=== PATIENT | male | born 1950 | race Caucasian/White ===

== ENCOUNTER → 2019-03-14 | Outpatient (CLI) | payer OTHER | END | disposition home or self-care (01) | LOC: MRI 07:28 | DX: M47.26 Other spondylosis with radiculopathy, lumbar region (principal); M47.27 Other spondylosis with radiculopathy, lumbosacral region; M47.12 Other spondylosis with myelopathy, cervical region; M51.17 Intervertebral disc disorders with radiculopathy, lumbosacral region; M51.16 Intervertebral disc disorders with radiculopathy, lumbar region; M43.17 Spondylolisthesis, lumbosacral region; M43.16 Spondylolisthesis, lumbar region; R26.2 Difficulty in walking, not elsewhere classified; M79.2 Neuralgia and neuritis, unspecified; M85.80 Other specified disorders of bone density and structure, unspecified site; M41.56 Other secondary scoliosis, lumbar region | CPT/HCPCS: 72141; 72148 ==